=== PATIENT | female | born 1990 | race Caucasian/White ===

== ENCOUNTER → 2022-01-08 | Outpatient (CLI) | payer BC ==
[2022-01-08 09:01] LABS: BASO # 0.02 K/mm3 (0.02-0.10); EOS # 0.03 K/mm3 (0.04-0.40); EOS % 0.4 % (1.0-5.0); HEMATOCRIT 41.8 % (37.0-47.0); HEMOGLOBIN 13.3 g/dL (12.5-16.0); LYMPH# 0.65 K/mm3 (1.50-4.00); MEAN CELL VOLUME 86 fl (78-100); MEAN CORPUSCULAR HEMOGLOBIN 27 pg (27-31); MEAN CORPUSCULAR HGB CONC 32 g/dL (33-37); MEAN PLATELET VOLUME 9.4 fl (7.4-10.4); MONO # 0.43 K/mm3 (0.20-0.80); NEU # 7.16 K/mm3 (1.40-6.50); PLATELET COUNT 274 K/mm3 (130-400); RED BLOOD COUNT 4.88 M/mm3 (4.10-5.30); RED CELL DISTRIBUTION WIDTH 12.9 % (11.5-14.5); WHITE BLOOD COUNT 8.3 K/mm3 (4.8-10.8)
[2022-01-08 09:19] LABS: POTASSIUM 3.8 mmol/L (3.5-5.1)
[2022-01-08 09:20] LABS: ALBUMIN 4.7 g/dL (3.5-5.0)
[2022-01-08 09:22] LABS: TOTAL PROTEIN 7.3 g/dL (6.4-8.3)
[2022-01-08 09:24] LABS: TOTAL BILIRUBIN 0.4 mg/dL (0.2-1.2)
[2022-01-09 00:57] LABS: T3 TOTAL 85 ng/dL (35-193)
== END ==
LOC: LAB 08:36
PROVIDERS: Physician Assistant
DX: Z00.00 Encounter for general adult medical examination without abnormal findings (principal); R94.6 Abnormal results of thyroid function studies; K90.9 Intestinal malabsorption, unspecified